=== PATIENT | female | born 1975 | race Caucasian/White ===

== ENCOUNTER 2023-06-20 22:24 | Emergency (ER) | payer MEDICAID, OTHER ==
[~2023-06-20] VITALS: Ht 160 cm; Wt 70.0 kg
[2023-06-20 22:46] VITALS: BP 128/82; TEMP 97.5; O2SAT 100
[2023-06-20 23:01] LABS: HEMATOCRIT 37.2 % (36.0-47.0); HEMOGLOBIN 12.5 g/dl (12.0-15.5); MEAN CORPUSCULAR HGB CONC 33.6 g/dl (32.0-36.5); MEAN CORPUSCULAR VOLUME 95.1 fl (80.0-96.0); PLATELET COUNT, AUTOMATED 202 10^3/uL (150-450); RED BLOOD COUNT 3.91 10^6/uL (4.00-5.40); WHITE BLOOD COUNT 8.3 10^3/uL (4.0-10.0)
[2023-06-20 23:23] LABS: SALICYLATE LEVEL < 3.0 MG/DL (<30)
[2023-06-20 23:24] LABS: ALBUMIN 3.8 G/DL (3.2-5.2); ALKALINE PHOSPHATASE 64 U/L (46-116); ALT/SGPT 13 U/L (7.0-40); AST/SGOT 21 U/L (<34); BILIRUBIN,DIRECT < 0.1 MG/DL (<0.4); BILIRUBIN,TOTAL 0.2 MG/DL (0.3-1.2); BLOOD UREA NITROGEN 11 MG/DL (9-23); CALCIUM LEVEL 9.1 MG/DL (8.5-10.1); CARBON DIOXIDE LEVEL 23 MMOL/L (20-31); CHLORIDE LEVEL 113 MMOL/L (98-107); CREATININE FOR GFR 0.66 MG/DL (0.55-1.30); GLOMERULAR FILTRATION RATE > 60.0 (>58); GLUCOSE, FASTING 80 MG/DL (60-100); POTASSIUM SERUM 4.3 MMOL/L (3.5-5.1); SODIUM LEVEL 145 MMOL/L (136-145); TOTAL PROTEIN 6.8 G/DL (5.7-8.2)
[2023-06-21 02:29] LABS: BARBITURATES URINE NEGATIVE (NEGATIVE); BENZODIAZEPINES URINE NEGATIVE (NEGATIVE); COCAINE METABOLITE URINE NEGATIVE (NEGATIVE)
[2023-06-21 02:30] LABS: METHADONE URINE NEGATIVE (NEGATIVE); OPIATES URINE NEGATIVE (NEGATIVE); PHENCYCLIDINE URINE NEGATIVE (NEGATIVE)
[2023-06-21 02:34] LABS: AMPHETAMINES LEVEL URINE POSITIVE (NEGATIVE); CANNABINOIDS URINE POSITIVE (NEGATIVE)
[2023-06-21] MEDS: LORazepam 2 MG TAB PO ONE (03:47)
== END 2023-06-21 07:27 | disposition home or self-care (01) ==
LOC: M ED 22:24
DX: R45.851 Suicidal ideations (principal); F32.A Depression, unspecified; F19.10 Other psychoactive substance abuse, uncomplicated; F10.10 Alcohol abuse, uncomplicated; Y90.6 Blood alcohol level of 120-199 mg/100 ml

== ENCOUNTER 2023-07-03 18:48 | Emergency (ER) | payer OTHER ==
[~2023-07-03] VITALS: Ht 167.6 cm; Wt 73.8 kg
[2023-07-03 18:58] VITALS: TEMP 96.8
[2023-07-03 19:00] VITALS: BP 115/61; O2SAT 94
== END 2023-07-03 20:40 | disposition home or self-care (01) ==
LOC: EDBD 18:48 → M ED 18:48
DX: S01.01XA Laceration without foreign body of scalp, initial encounter (principal); Y92.9 Unspecified place or not applicable; Y93.9 Activity, unspecified; Y99.9 Unspecified external cause status; Y04.2XXA Assault by strike against or bumped into by another person, initial encounter; F32.A Depression, unspecified; K21.9 Gastro-esophageal reflux disease without esophagitis; F12.10 Cannabis abuse, uncomplicated; F10.10 Alcohol abuse, uncomplicated; Z88.0 Allergy status to penicillin; Z88.2 Allergy status to sulfonamides; Z88.8 Allergy status to other drugs, medicaments and biological substances

== ENCOUNTER 2023-08-31 19:24 | Emergency (ER) | payer OTHER ==
[~2023-08-31] VITALS: Ht 170.2 cm; Wt 68.3 kg
[2023-08-31 19:55] LABS: VENOUS HCO3 20.5 MMOL/L (23.0-27.0); VENOUS O2 SATURATION 50.4 % (60.0-80.0); VENOUS PARTIAL PRESSURE CO2 49.2 mmHg (38.0-50.0); VENOUS PARTIAL PRESSURE O2 29.5 mmHg (30.0-50.0); VENOUS PH 7.238 UNITS (7.330-7.430); VENOUS STANDARD HCO3 17.9 MMOL/L
[2023-08-31] MEDS: NS 2,050 ML in IV 1 EA IV ONE (19:56)
[2023-08-31 20:01] LABS: BASO % 0.4 % (0.0-1.0); EOS # 0.1 10^3/uL (0.0-0.5); EOS % 1.5 % (0.0-3.0); HEMATOCRIT 36.1 % (36.0-47.0); HEMOGLOBIN 11.9 g/dl (12.0-15.5); LYMPH % 22.5 % (24.0-44.0); MEAN CORPUSCULAR HEMOGLOBIN 32.7 pg (27.0-33.0); MEAN CORPUSCULAR VOLUME 99.2 fl (80.0-96.0); MONO # 0.7 10^3/uL (0.0-0.8); MONO % 7.3 % (2.0-8.0); PLATELET COUNT, AUTOMATED 226 10^3/uL (150-450); RED BLOOD COUNT 3.64 10^6/uL (4.00-5.40); WHITE BLOOD COUNT 8.9 10^3/uL (4.0-10.0)
[2023-08-31 20:31] LABS: CK-MB VALUE MASS < 1.0 NG/ML (<3.6)
[2023-08-31 20:32] LABS: ETHYL ALCOHOL (ETHANOL) < 0.003 % (0.000-0.010)
[2023-08-31 20:33] LABS: BLOOD UREA NITROGEN 14 MG/DL (9-23); CALCIUM LEVEL 8.5 MG/DL (8.5-10.1); CARBON DIOXIDE LEVEL 22 MMOL/L (20-31); CHLORIDE LEVEL 112 MMOL/L (98-107); CPK CREATINE PHOSPHOKINASE 30 U/L (34-145); CREATININE FOR GFR 1.06 MG/DL (0.55-1.30); GLOMERULAR FILTRATION RATE 59.2 (>58); GLUCOSE, FASTING 68 MG/DL (60-100); MB/CK RELATIVE INDEX 3.33 (< OR =4); SODIUM LEVEL 141 MMOL/L (136-145)
[2023-08-31 20:34] LABS: FREE T4 0.94 NG/DL (0.89-1.76)
[2023-08-31 20:36] LABS: THYROID STIMULATING HORMONE 1.484 uIU/ML (0.55-4.78)
[2023-08-31] MEDS ORDERED: DEXTROSE 50% 50ML SYRINGE As Ordered ONE (20:36)
[2023-08-31] MEDS ORDERED: NALOXONE 2MG/2ML SYRINGE As Ordered ONE (20:40)
[2023-08-31] MEDS: NALOXONE 2MG/2ML SYRINGE IV STA (20:42)
[2023-08-31] MEDS: DEXTROSE 50% 50ML SYRINGE IV STA (20:42)
[2023-08-31 21:39] LABS: AMPHETAMINES LEVEL URINE NEGATIVE (NEGATIVE); BARBITURATES URINE NEGATIVE (NEGATIVE); BENZODIAZEPINES URINE NEGATIVE (NEGATIVE); COCAINE METABOLITE URINE NEGATIVE (NEGATIVE); METHADONE URINE NEGATIVE (NEGATIVE); OPIATES URINE NEGATIVE (NEGATIVE); PHENCYCLIDINE URINE NEGATIVE (NEGATIVE)
[2023-08-31 21:44] LABS: CANNABINOIDS URINE POSITIVE (NEGATIVE)
[2023-08-31 22:36] LABS: CK-MB VALUE MASS < 1.0 NG/ML (<3.6); CPK CREATINE PHOSPHOKINASE 38 U/L (34-145); MB/CK RELATIVE INDEX 2.63 (< OR =4)
[2023-08-31] MEDS ORDERED: ISOVUE-370 76% 100ML VIAL As Ordered ONE (23:26)
[2023-08-31] MEDS: LevoFLOXacin IV 750 MG in IV 1 EA IV ONE (23:41)
[2023-09-01 00:48] VITALS: TEMP 98.1; O2SAT 100
[2023-09-01] MEDS: NS 1,000 ML IV ONE (01:25)
[2023-09-01 03:12] VITALS: BP 103/61
[2023-09-01] MEDS ORDERED: LEVO1TAB40 PO (03:18)
[2023-09-01] MEDS ORDERED: HOLTER MONITOR XX (03:20)
== END 2023-09-01 03:41 | disposition home or self-care (01) ==
LOC: M ED 19:24
DX: E86.0 Dehydration (principal); N39.0 Urinary tract infection, site not specified; R55 Syncope and collapse; R00.1 Bradycardia, unspecified; J45.909 Unspecified asthma, uncomplicated; K21.9 Gastro-esophageal reflux disease without esophagitis; F90.9 Attention-deficit hyperactivity disorder, unspecified type; F41.9 Anxiety disorder, unspecified; F32.A Depression, unspecified; F10.10 Alcohol abuse, uncomplicated; Z88.0 Allergy status to penicillin; Z88.2 Allergy status to sulfonamides; Z88.1 Allergy status to other antibiotic agents; Z79.899 Other long term (current) drug therapy
CPT/HCPCS: 70450; 71045; 71275; 72125; 80048; 80307; 81001; 82077; 82550; 82553; 82803; 83605; 83735; 84439; 84443; 84484; 85025; 85379; 87088; 87186; 93005; 93041; 94760; 96361; 96365; 96374; 99285; J1956; J2310; Q9967